=== PATIENT | female | born 1990 | race Hispanic/Latino ===

== ENCOUNTER 2017-12-27 02:58 | Emergency (ER) | payer BC ==
[2017-12-27 03:19] LABS: Bilirubin Negative (Negative); Blood, Urine Negative (Negative); Clarity Clear (Clear); Glucose, Urine (Dipstick) Negative (Negative); Leukocyte Trace (Negative); Nitrite Negative (Negative); Protein, Urine (Dipstick) Negative (Neg-Trace); Specific Gravity, Urine 1.025 (1.005-1.030); Urobilinogen 0.2 mg/dL (0.2-1.0); pH, Urine 6.5 (5.0-9.0)
[2017-12-27 03:29] LABS: Bacteria/HPF 3+ HPF (None Seen); Hyaline Casts/LPF 0-3 HYALINE CAST LPF (0-3 Hyaline); RBC/HPF 0-3 HPF (0-3); Squamous Epithelial 0-3 HPF (0-3)
== END 2017-12-27 03:49 | disposition home or self-care (01) ==
LOC: SCSER 02:58
DX: N39.0 Urinary tract infection, site not specified (principal)
CPT/HCPCS: 81003; 81015; 99284

== ENCOUNTER 2020-02-16 20:42 | Inpatient (IN) | payer OTHER ==
[~2020-02-16 20:42] MED LIST: Bupivacaine 0.25% HCL 30 ML VIAL ONE
[2020-02-16 22:13] VITALS: BMI 31.1
[2020-02-16] MEDS ORDERED: NS / Oxytocin 40 units/1000ml 1,000 ML IV PRN (22:13)
[2020-02-16] MEDS ORDERED: Ibuprofen 800 MG TAB PO PRN (22:13)
[2020-02-16] MEDS ORDERED: Lidocaine 1% (PF) 30 ML VIAL SC PRN (22:13)
[2020-02-16] MEDS ORDERED: Promethazine HCl 25 MG/ML VIAL IM PRN (22:13)
[2020-02-16] MEDS ORDERED: Ondansetron PF 4 MG/2 ML Vial IVP PRN (22:13)
[2020-02-16] MEDS ORDERED: hydrALAZINE 20 MG/ML VIAL SLOW IVP PRN (22:13)
[2020-02-16] MEDS ORDERED: HYDROcodone/Acetaminophen 5/325 mg Tablet PO PRN ×2 (22:13)
[2020-02-16] MEDS ORDERED: Butorphanol Tartrate 1 MG/ML VIAL SLOW IVP PRN (22:13)
[2020-02-16] MEDS ORDERED: NS w/ Oxytocin 10 units 500 ML IV SCH ×2 (22:13)
[2020-02-16] MEDS: Lactated Ringer's 1,000 ML IV SCH (22:20)
[2020-02-16 22:40] LABS: Hemoglobin 10.1 g/dL (12.0-16.0); Mean Corpuscular Hemoglobin 32.9 pg (27.0-31.0); Mean Corpuscular Volume 96.9 fL (78.0-98.0); Mean Platelet Volume 6.6 fL (7.4-10.4); Platelet Count 316 thou/uL (130-400); Red Blood Cell (RBC) Count 3.08 mill/uL (4.20-5.40); White Blood Cell (WBC) Count 11.3 thou/uL (4.8-10.8)
[2020-02-16] MEDS: Misoprostol 100 MCG TAB VAG SCH (22:48)
[2020-02-16 23:15] LABS: Syphilis Antibody Nonreactive (Nonreactive); Syphilis Antibody Index 0.04 S/CO (<1.00 Non-Reactive)
[2020-02-16 23:22] LABS: HBSAg Index 0.25 S/CO (0-0.99); Hep B Surf Ag Non-Reactive S/CO (NonReactive)
[2020-02-17] MEDS: Lactated Ringer's 1,000 ML IV SCH (06:13)
[2020-02-17] MEDS ORDERED: Fentanyl 4 mcg/Bup 0.1% Cadd 100 ML ONE ×2 (09:30→17:29)
[2020-02-17] MEDS ORDERED: EPHEDRINE 25 MG/5 ML SYRINGE SLOW IVP PRN (10:47)
[2020-02-17] MEDS ORDERED: Lactated Ringer's 500 ML IV PRN (10:47)
[2020-02-17] MEDS ORDERED: diphenhydrAMINE 50 MG/ML VIAL IVP PRN ×2 (10:47→21:36)
[2020-02-17] MEDS ORDERED: Acetaminophen 325 MG TAB PO PRN (10:47)
[2020-02-17] MEDS ORDERED: Ondansetron PF 4 MG/2 ML Vial IVP PRN ×3 (10:47→23:42)
[2020-02-17] MEDS ORDERED: Promethazine HCl 25 MG/ML VIAL IM PRN ×2 (10:47→21:36)
[2020-02-17] MEDS ORDERED: Naloxone HCl 0.4 mg/ml Vial IVP PRN ×4 (10:47→21:36)
[2020-02-17] MEDS ORDERED: Fentanyl 4 mcg/Bupivacaine 0.1% Cassette 100 ML EPIDURAL SCH (11:00)
[2020-02-17] MEDS ORDERED: Communication Order-Pharmacy FS SCH ×2 (11:00→21:45)
--- NOTE | 2020-02-17 16:49 | PDOC.LDPN ---
Labor & Delivery Progress Note - Subjective Subjective: painful contractions - Objective Vital signs reviewed and normal: yes General: breathing through contractions Dilation: 8 Effacement: 90% Station: 0 FHT: category 1 - Assessment (1) Term Code(s): Z34.90 - ENCNTR FOR SUPRVSN OF NORMAL , UNSP, UNSP TRIMESTER Current Visit: Yes Status: Acute Plan: labor augmentation -: Undergoing IOL w 8cm noted since last check. Discussed restart pitocin, FHT reassuring at this time.
[2020-02-17] MEDS ORDERED: Lidocaine 1% (PF) 30 ML VIAL ONE (17:28)
[2020-02-17] MEDS ORDERED: NS / Oxytocin 40 units/1000ml 1,000 ML ONE (17:28)
[2020-02-17] MEDS ORDERED: Fentanyl 100 MCG/2 ML VIAL ONE (17:36)
[2020-02-17] MEDS: Misoprostol 100 MCG TAB VAG SCH (17:50)
[2020-02-17] MEDS ORDERED: Azithromycin 500 MG in Sodium Chloride 0.9% 250 ML 250 ML IVPB SCH (20:00)
[2020-02-17] MEDS ORDERED: Bicitra 30 ML UDCUP PO SCH (20:00)
[2020-02-17] MEDS ORDERED: CEFAZOLIN 2 GM in Premix Bag 1 BAG IVPB SCH (20:00)
[2020-02-17] MEDS ORDERED: Bupivacaine PF 0.5% 30 ML VIAL ONE (20:13)
[2020-02-17] MEDS ORDERED: Lidocaine 2% 10 ML INJ ONE (20:13)
[2020-02-17] MEDS ORDERED: Dexamethasone 4 mg/ml Vial ONE (20:14)
[2020-02-17] MEDS ORDERED: Oxytocin 10 UNITS/ML VIAL ONE (20:14)
[2020-02-17] MEDS ORDERED: Ketorolac Tromethamine 30 MG/ML VIAL ONE (20:14)
[2020-02-17] MEDS ORDERED: EPHEDRINE 25 MG/5 ML SYRINGE ONE (20:16)
[2020-02-17] MEDS ORDERED: PHENYLEPHRINE-NS 100 MCG/ML 10 ML SYRINGE ONE (20:16)
[2020-02-17] MEDS ORDERED: Ondansetron PF 4 MG/2 ML Vial ONE (20:21)
[2020-02-17] MEDS ORDERED: Midazolam HCl 2 mg/2 ml Vial ONE (20:49)
[2020-02-17] MEDS ORDERED: Ketamine 50 MG/ML (10ML VIAL) ONE (20:50)
[2020-02-17] MEDS ORDERED: Promethazine HCl 25 MG/ML VIAL ONE (20:56)
[2020-02-17] MEDS ORDERED: MORPHINE 5 MG/10 ML PF VIAL ONE (21:08)
[2020-02-17] MEDS ORDERED: L&D-Morphine 4 MG/ML VIAL SLOW IVP PRN (21:36)
[2020-02-17] MEDS ORDERED: Meperidine HCl/PF 25 MG/ML VIAL SLOW IVP PRN (21:36)
[2020-02-17] MEDS ORDERED: HYDROmorphone 2 MG/ML VIAL SLOW IVP PRN (21:36)
[2020-02-17] MEDS ORDERED: Promethazine HCl 25 MG SUPP PR PRN (21:36)
[2020-02-17] MEDS ORDERED: Ketorolac Tromethamine 30 MG/ML VIAL IVP PRN (21:36)
[2020-02-17] MEDS ORDERED: Ondansetron HCl/PF 4 MG/2 ML Vial IVP PRN (21:36)
--- NOTE | 2020-02-17 22:30 | OP ---
DATE OF PROCEDURE: 02/17/2020 PREOPERATIVE DIAGNOSES: 1. Elective induction, arrest of dilation at 8 cm. 2. 39 weeks. POSTOPERATIVE DIAGNOSIS: Status post primary low transverse section. PROCEDURES PERFORMED: Primary low transverse section without extension. STUDENT TRUCK DRIVER: Sarah Garcia MD COMPLICATIONS: None. ESTIMATED BLOOD LOSS: 800 mL. ANESTHESIA: Epidural per Dr. Gibbs. FINDINGS: 1. Vigorous female infant, Apgars pending at the time of intake of dictation. Weight 9 pounds and 1 ounce to [facility]. 2. Low-transverse hysterotomy without extension. 3. Normal-appearing uterus, tubes, and ovaries bilaterally. 4. Fundus firm after delivery of placenta and closure of hysterotomy. 5. Surgical site hemostatic. DESCRIPTION OF PROCEDURE: The patient was taken back to the OR with IV fluids running and a Alonzo catheter and epidural catheters that were previously in place. She received Ancef 2 g and azithromycin 500 mg. The abdomen was prepped and draped in normal fashion for section. Surgeons were gowned and gloved. Anesthesia was tested and found to be adequate. A Pfannenstiel skin incision was made with the scalpel. Skin incision was carried down through subcutaneous tissue to the fascia. Once the fascia was reached, it was incised in the midline and extended superolaterally using curved Masters scissors. Willie clamps were placed at the superior border of the fascia, which was sharply and bluntly dissected off the rectus abdominis muscles. In similar fashion, they were placed at the inferior border of fascia, which was dissected down towards the pubic symphysis. The rectus muscles and peritoneum were bluntly entered in the midline and stretched laterally. An Silvestre O retractor was placed in the peritoneal cavity for retraction, visualization, and protection of the wound. A bladder flap was created, and the bladder was dissected away from the planned hysterotomy site. The hysterotomy was made with a scalpel. The hysterotomy was bluntly entered and stretched using the Nath maneuver. The infant was delivered through the incision vertex. With the nose and mouth suctioned, the cord doubly clamped and cut. The handed off to the special care nurse in attendance. Cord blood was collected. The placenta was delivered. The uterus was exteriorized, massaged to firm and cleared of clot and debris. The hysterotomy was inspected with no extension noted. The uterus was returned to the abdominal cavity. Hysterotomy was closed with 4-0 Monocryl with a running lock stitch. An additional [id number] stitch was placed at the left corner for hemostasis. Once hemostasis was noted, the hysterotomy and paracolic gutter were irrigated and suctioned dry. Hysterotomy was inspected again and no areas of bleeding were noted. The Silvestre retractor was removed from the abdominal cavity. The rectus muscles and fascia were inspected and any small areas of bleeding were controlled with Bovie cauterization. The rectus fascia was reapproximated with PDS suture from corner to corner in a running fashion. The subcutaneous tissue was copiously irrigated and suctioned dry. Any small areas of bleeding were controlled with Bovie cauterization. The subcutaneous tissue was reapproximated with plain gut suture and the subcuticular layer was closed with 4-0 Monocryl and dressed with Dermabond dressing. The patient tolerated the procedure well and was transferred to recovery room in good condition. Job ID: [id number]
[2020-02-17] MEDS ORDERED: Bisacodyl 10 MG SUPP PR PRN (23:42)
[2020-02-17] MEDS ORDERED: diphenhydrAMINE 25 MG CAP PO PRN (23:42)
[2020-02-17] MEDS ORDERED: Lanolin Ointment 7 GM TUBE TOP PRN (23:42)
[2020-02-17] MEDS ORDERED: hydrALAZINE 20 MG/ML VIAL SLOW IVP PRN (23:42)
[2020-02-18] MEDS: Ibuprofen 800 MG TAB PO SCH ×3 (00:50→22:07)
[2020-02-18] MEDS: Misoprostol 100 MCG TAB VAG SCH ×2 (00:51→00:53)
[2020-02-18] MEDS: Lactated Ringer's 1,000 ML IV SCH (00:52)
[2020-02-18] MEDS: Simethicone Chewable 80 MG TAB PO PRN ×3 (05:17→22:07)
[2020-02-18 05:33] LABS: Hemoglobin 8.6 g/dL (12.0-16.0); Mean Corpuscular HGB CONC 35.5 g/dL (32.0-36.0); Mean Corpuscular Hemoglobin 34.7 pg (27.0-31.0); Mean Corpuscular Volume 97.6 fL (78.0-98.0); Mean Platelet Volume 6.5 fL (7.4-10.4); Platelet Count 258 thou/uL (130-400); RBC Distribution Width 16.6 % (11.5-14.5); Red Blood Cell (RBC) Count 2.49 mill/uL (4.20-5.40); White Blood Cell (WBC) Count 19.9 thou/uL (4.8-10.8)
--- NOTE | 2020-02-18 08:05 | PDOC.PP ---
Post Progress Note Post Day #: 1 Subjective: Pt is doing well this am. Pain well controlled 01/07. Minimal lochia < menses. Baby is breast feeding and latching well. Plan to d/c silveira at 9 am. No leg swelling, cp or SOB. PO intake tolerated: yes Flatus: yes Vital Signs (12 hours) Temp Pulse Resp BP Pulse Ox 02/18/20 07:36 98.0 F 86 20 103/64 95 02/18/20 05:20 98.6 F 85 16 104/57 L 02/18/20 01:15 98.8 F 86 16 95/51 L 02/18/20 00:10 99.3 F 77 16 112/61 Weight Weight 170 lb - Physical Examination General: NAD Respiratory: non-labored breathing Abdominal: + bowel sounds, lochia, no distention, appropriately TTP Fundus firm & at: 1 cm below umbilicus Extremities: negative homans (B) Skin: CS incision dry & intact, no rash Neurological: no gross focal deficits Psychiatric: normal affect Result Diagrams: 02/18/20 05:09 Additional Labs: Post Labs Blood Type O POSITIVE 02/16/20 22:48 Hep Bs Antigen Non-Reactive S/CO (NonReactive) 02/16/20 22:23 - Assessment/Plan Pt doing well on PPD1 s/p Cesarian section. VSS, Afebrile. Pain well controlled. Anemia noted will continue with iron. Infant is Breast feeding well at this time. Continue routine care at this time.
--- NOTE | 2020-02-18 08:45 | OP ---
DATE OF PROCEDURE: 02/17/2020 ADDENDUM: I was present and scrubbed to assist the uncomplicated primary low-transverse with Dr. Tariq Powell. Please see her note for full details. Job ID: [id number]
[2020-02-18] MEDS: Docusate Calcium (SURFAK) 240 MG CAP PO SCH ×2 (08:55→22:06)
[2020-02-18] MEDS: Prenatal Vitamin 1 TAB PO SCH (08:55)
[2020-02-18] MEDS: Ferrous Sulfate 325 MG TAB PO SCH ×2 (08:55→22:07)
[2020-02-18] MEDS ORDERED: Adacel (T-DAP) 0.5 ML SYRINGE IM ONE (09:00)
[2020-02-18] MEDS ORDERED: HYDROcodone/Acetaminophen 5/325 mg Tablet PO PRN ×2 (09:45)
[2020-02-18] MEDS ORDERED: Sodium Chloride 0.9% 10 ML ONE (17:00)
[2020-02-18] MEDS: Naloxone HCl 0.4 mg/ml Vial IV PRN ×3 (17:03→17:57)
[2020-02-19] MEDS: Ibuprofen 800 MG TAB PO SCH (05:41)
[2020-02-19 07:47] VITALS: BP 113/77; TEMP 97.9
--- NOTE | 2020-02-19 08:44 | PDOC.PP ---
Post Progress Note Post Day #: 2 Subjective: request DC home, pumping, minimal discomfort, post op goals met PO intake tolerated: yes Flatus: yes Ambulation: yes Vital Signs (12 hours) Temp Pulse Resp BP Pulse Ox 02/19/20 07:46 97.9 F 92 20 113/77 02/19/20 05:40 97.8 F 74 14 109/65 98 02/19/20 00:04 97.6 F 89 14 113/57 L 98 Weight Weight 170 lb - Physical Examination General: NAD Respiratory: non-labored breathing Abdominal: no distention Skin: CS incision dry & intact, no rash Psychiatric: A&Ox3, normal affect Result Diagrams: 02/18/20 05:09 Additional Labs: Post Labs Blood Type O POSITIVE 02/16/20 22:48 Hep Bs Antigen Non-Reactive S/CO (NonReactive) 02/16/20 22:23 (1) Term Code(s): Z34.90 - ENCNTR FOR SUPRVSN OF NORMAL , UNSP, UNSP TRIMESTER Status: Acute (2) delivery delivered Code(s): O82 - ENCOUNTER FOR DELIVERY WITHOUT INDICATION Status: Acute - Assessment/Plan POD2 sp arrest of dilation @ 8cm, doing well, post op goals met, request DC home. Pain med use and iron supplementation reviewed.
[2020-02-19] MEDS: Simethicone Chewable 80 MG TAB PO PRN (09:25)
[2020-02-19] MEDS: Ferrous Sulfate 325 MG TAB PO SCH (09:25)
[2020-02-19] MEDS: Docusate Calcium (SURFAK) 240 MG CAP PO SCH (09:25)
[2020-02-19] MEDS: Prenatal Vitamin 1 TAB PO SCH (09:25)
--- NOTE | 2020-02-25 09:01 | PQF ---
Sonia Miller JUAN PABLO POWELL DO [id number] CLINICAL DOCUMENTATION CLARIFICATION FORM: POST DISCHARGE Addendum to original discharge summary date: ____ Late entry note date: __ DATE:02/25/2020 ATTN:JUAN PABLO POWELL DO Please exercise your independent, professional judgment in responding to the clarification form. Clinical indicators are provided on the bottom of this form for your review Please check appropriate box(s): [ ] Acute blood loss anemia [x ] Post-op anemia related to acute blood loss [ ] Iron deficiency anemia [ x ] Other diagnosis anemia of pregnancy____ [ ] Unable to determine In addition, please specify: Present on Admission (POA): [ ] Yes [ ] No [ ] Unable to determine For continuity of documentation, please document condition throughout progress notes and discharge summary. Thank You. CLINICAL INDICATORS - SIGNS / SYMPTOMS / LABS Anemia noted will continue with iron-Documented in progress note on 02/17 by Nelsy Kim PA-C HGC-10.1 to 8.6-Documented in Laboratory HCT-29.8 to 24.3-Documented in Laboratory Estimated blood loss-800ml -Documented in OP note 02/16 by Juan Pablo Powell DO Primary low transverse section-Documented in OP note 02/16 by Juan Pablo Powell DO [employer] Primary low transverse section-Documented in OP note 02/16 by Juan Pablo Powell DO Anemia noted will continue with iron-Documented in progress note on 02/17 by Nelsy Kim PA-C TREATMENTS: will continue with iron-Documented in progress note on by Nelsy Kim PA-C Ferrous sulfate 325 mg po-Documented in medication snapshot [employer] Reports Winform Viewer (This form is maintained as a part of the permanent medical record) 2014 [employer]. All Rights Reserved [facility] [phone] MTDD
== END 2020-02-19 12:00 | disposition home or self-care (01) | DRG 787 ==
LOC: L&D 20:42 → 3SW 02-18 00:41
PROVIDERS: ADMIT Obstetrics & Gynecology; ATTEND Obstetrics & Gynecology
PROC: 10D00Z1 Extraction of Products of Conception, Low, Open Approach (ICD-10-PCS; principal; 2020-02-17)
DX: O62.1 Secondary uterine inertia (principal); D62 Acute posthemorrhagic anemia; Z3A.39 39 weeks gestation of pregnancy; Z37.0 Single live birth; O90.81 Anemia of the puerperium
CPT/HCPCS: 36415; 51702; 85027; 86780; 86850; 86900; 86901; 87340; J0456; J0690; J1100; J1885; J2001; J2250; J2274; J2310; J2405; J2550; J2590; J3010; J7050; S0020